=== PATIENT | female | born 2005 | race Caucasian/White ===

== ENCOUNTER 2024-02-28 21:31 | Emergency (ER) | payer OTHER ==
[2024-02-28] MEDS: Ibuprofen 600 MG Tab PO ONE (21:53)
== END 2024-02-28 22:50 | disposition home or self-care (01) ==
LOC: MW.ED 21:31
DX: S93.401A Sprain of unspecified ligament of right ankle, initial encounter (principal); Z88.0 Allergy status to penicillin; W01.0XXA Fall on same level from slipping, tripping and stumbling without subsequent striking against object, initial encounter
CPT/HCPCS: 73610; 99283; A9270